=== PATIENT | male | born 1975 | race Caucasian/White ===

== ENCOUNTER 2017-11-19 22:58 | Emergency (ER) | payer OTHER ==
[~2017-11-19] VITALS: Ht 175.3 cm; Wt 99.8 kg
[2017-11-19 23:04] VITALS: BP 130/80
== END 2017-11-20 00:04 | disposition home or self-care (01) ==
LOC: ER 23:01
DX: H01.001 Unspecified blepharitis right upper eyelid (principal); L73.2 Hidradenitis suppurativa
CPT/HCPCS: A4606; Z7610